=== PATIENT | female | born 1990 | race Caucasian/White ===

== ENCOUNTER 2018-07-03 08:21 | Day surgery (SDC) | payer BC ==
[2018-06-30 08:18] VITALS: BMI 41.5
[2018-07-03 08:42] VITALS: TEMP 97.9
[2018-07-03 12:37] VITALS: BP 118/73; PULSE 61
--- NOTE | 2018-07-06 15:25 | PATH ---
Surgical Pathology Report Patient Name: MARYLOU STERLING [facility]. Rec. #: [id number] /Age/Gender: 1990 (Age: 28) / F Account: [id number] Location: [facility] Taken: 07/03/2018 Received: 07/03/2018 Reported: 07/06/2018 Physicians: Isaiah Roe M.D. Specimen(s) Received A: SECOND PORTION DUODENUM B: BX GASTRIC ANTRUM Clinical History Pre-bariatric EGD Postoperative diagnosis: GERD, pre-bariatric Final Diagnosis A. SECOND PORTION OF DUODENUM, BIOPSY: DUODENAL MUCOSA WITH NO PATHOLOGIC FINDINGS. B. GASTRIC ANTRUM, BIOPSY: GASTRIC MUCOSA SHOWING MINIMAL CHRONIC INFLAMMATION. IMMUNOSTAIN IS NEGATIVE FOR H. PYLORI ORGANISMS. Electronically Signed Yolie Conway M.D. Gross Description A. Received in formalin, labeled "biopsy second portion of duodenum" are 2 robledo, irregular portions of soft tissue averaging 0.5 cm. in greatest dimension. The specimens are submitted in toto in one cassette. B. Received in formalin, labeled "biopsy gastric antrum" are 3 robledo, irregular portions of soft tissue ranging from 0.3-0.5 cm. in greatest dimension. The specimens are submitted in toto in one cassette. 07/04/2018 saudi07/04/2018
== END 2018-07-03 11:30 | disposition home or self-care (01) ==
LOC: FASU-ENDO 08:21
PROVIDERS: ATTEND Internal Medicine Gastroenterology
PROC: 0DB48ZX Excision of Esophagogastric Junction, Via Natural or Artificial Opening Endoscopic, Diagnostic (ICD-10-PCS; 2018-07-03)
PROC: 0DB98ZX Excision of Duodenum, Via Natural or Artificial Opening Endoscopic, Diagnostic (ICD-10-PCS; principal; 2018-07-03 10:39)
PROC: 0DB68ZX Excision of Stomach, Via Natural or Artificial Opening Endoscopic, Diagnostic (ICD-10-PCS; 2018-07-03 10:39)
DX: Z01.818 Encounter for other preprocedural examination (principal); K29.50 Unspecified chronic gastritis without bleeding; R12 Heartburn
CPT/HCPCS: 84703; 88305-TC; 88342-TC